=== PATIENT | female | born 1960 | race Caucasian/White ===

== ENCOUNTER 2018-12-23 17:22 | Emergency (ER) | payer BC, OTHER ==
[~2018-12-23] VITALS: Ht 167.6 cm; Wt 95.5 kg
[2018-12-23 17:43] VITALS: BP 125/77
[2018-12-23] MEDS ORDERED: CIPR10DR LEFT EAR (17:55)
== END 2018-12-23 18:21 | disposition home or self-care (01) ==
LOC: ER 17:22
DX: H60.92 Unspecified otitis externa, left ear (principal); Z88.6 Allergy status to analgesic agent; Z88.5 Allergy status to narcotic agent; Z79.899 Other long term (current) drug therapy
CPT/HCPCS: 99283

== ENCOUNTER 2021-11-24 17:15 | Emergency (ER) | payer SELFPAY ==
--- NOTE | 2021-11-24 17:22 | NUR ---
Attempted to call pt's name, at which time she asked "is it going to be a 5 hour wait?". I explained that we are unable to give out wait times, but that the ER is busy. Another pt in the lobby then told the pt "yes, we've been here five hours". At this time, the pt stated she no longer wished to be seen.
== END 2021-11-24 17:25 | disposition left against medical advice (07) ==
LOC: ER 17:16
DX: M79.672 Pain in left foot (principal); Z53.21 Procedure and treatment not carried out due to patient leaving prior to being seen by health care provider